=== PATIENT | male | born 1955 | race Caucasian/White ===

== ENCOUNTER 2017-04-29 11:07 | Day surgery (SDC) ==
[2014-01-18 01:56] VITALS: BMI 27.8
[2017-04-29] MEDS ORDERED: DIPRIVAN 20 ML VIAL IVP ONE (12:06)
[2017-04-29] MEDS ORDERED: VERSED ONE (12:06)
[2017-04-29 13:09] VITALS: BP 129/81; TEMP 98.4
--- NOTE | 2017-04-30 10:28 | OP ---
PROCEDURE: COLONOSCOPY, SNARE POLYPECTOMY. ENDOSCOPIST: Jie BENÍTEZ M.D. INDICATION: HISTORY OF PSC, HERE FOR SURVEILLANCE. INSTRUMENT: [facility]-190. MEDICATION: PER ANESTHESIA. PROCEDURE: The patient was positioned for colonoscopy. The digital rectal exam was negative. The colonoscope was inserted through the anus and advanced under direct vision to the cecum. The cecum was identified using the ileocecal valve and the appendiceal orifice as landmarks. The scope was slowly withdrawn through a well-prepped colon. At the hepatic flexure, a small polypoid area was removed using snare cautery. No other abnormalities were noted. Retroflex exam was otherwise normal. The patient tolerated the procedure well without immediate complication. PLAN: 1. Review pathology. 2. Repeat exam in two years. CC: DR. RAJI VIGIL CC: REN LEES M.D. [facility] OF GASTROENTEROLOGY [address] [place] [id number] MTDD
== END 2017-04-29 13:13 | disposition home or self-care (01) ==
LOC: SURG 11:07
PROVIDERS: ATTEND Internal Medicine Gastroenterology
DX: Z09 Encounter for follow-up examination after completed treatment for conditions other than malignant neoplasm (principal); Z87.19 Personal history of other diseases of the digestive system; D12.3 Benign neoplasm of transverse colon

== ENCOUNTER 2018-02-03 06:34 | Day surgery (SDC) ==
[2014-01-18 01:56] VITALS: BMI 27.8
[2018-02-03] MEDS ORDERED: LIDOCAINE 1% 20 ML MDV ID ONE (07:17)
[2018-02-03] MEDS ORDERED: LIDOCAINE HCL 2% LUER-JET ONE (08:25)
[2018-02-03] MEDS ORDERED: VERSED ONE (08:25)
[2018-02-03] MEDS ORDERED: DIPRIVAN 20 ML VIAL IVP ONE (08:25)
[2018-02-03 09:40] VITALS: BP 122/67; TEMP 98.7
--- NOTE | 2018-02-04 08:47 | OP ---
PROCEDURE: EGD (ESOPHAGOGASTRODUODENOSCOPY). ENDOSCOPIST: Jie BENÍTEZ M.D. INDICATION: PSC INSTRUMENT: [facility]-190. MEDICATION: PER ANESTHESIA. PROCEDURE: The patient was positioned for endoscopy. The oropharynx was sprayed with Cetacaine spray and the endoscope was advanced through the bite block into the esophagus and from there advanced to the duodenum. The duodenum was normal. There was no evidence of duodenum polyps. The ampulla was within duodenum diverticulum and I could not visualize it on a forward viewing scope. Mild gastritis was noted throughout the stomach. There was no evidence of inflammatory change such as ulcer or mass. The cardia was normal. The Z-line was at 40cm . 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 These are in four columns less than 5mm in size and flattened with inflation. These are a new findings compared to his previous endoscopies. The remained esophagus was normal. The patient tolerated the procedure without immediate complication. PLAN: 1. Surveillance endoscopy in one year CC: Dr. Chase Ordoñez, [facility] Division of Gastroenterology [address] [place] [id number] Send copy of the color photos to his office as well. [facility]
== END 2018-02-03 09:35 | disposition home or self-care (01) ==
LOC: SURG 06:34
PROVIDERS: ATTEND Internal Medicine Gastroenterology
DX: Z87.19 Personal history of other diseases of the digestive system (principal); K29.70 Gastritis, unspecified, without bleeding; I85.00 Esophageal varices without bleeding; K57.90 Diverticulosis of intestine, part unspecified, without perforation or abscess without bleeding

== ENCOUNTER 2018-03-04 06:55 | Outpatient (CLI) ==
[2014-01-18 01:56] VITALS: BMI 27.8
== END 2018-03-04 06:56 | disposition home or self-care (01) ==
LOC: LAB 06:55
PROVIDERS: ATTEND Internal Medicine Gastroenterology
DX: K83.0 Cholangitis (principal)
CPT/HCPCS: 36415; 80053; 85610

== ENCOUNTER 2019-01-26 06:24 | Day surgery (SDC) ==
[2014-01-18 01:56] VITALS: BMI 27.8
[2019-01-26] MEDS ORDERED: LIDOCAINE 1% 20 ML MDV ID ONE (07:15)
[2019-01-26 07:20] VITALS: TEMP 96
[2019-01-26] MEDS ORDERED: DIPRIVAN 20 ML VIAL IVP ONE (08:00)
[2019-01-26 08:42] VITALS: BP 98/57
--- NOTE | 2019-01-27 11:35 | OP ---
PROCEDURE: EGD (ESOPHAGOGASTRODUODENOSCOPY). ENDOSCOPIST: Jie BENÍTEZ M.D. INDICATION: VARICELE SURVEILLIANCE INSTRUMENT: [facility]-190. MEDICATION: PER ANESTHESIA. PROCEDURE: The patient was positioned for endoscopy. The oropharynx was sprayed with Cetacaine spray and the endoscope was advanced through the bite block into the esophagus and from there advanced to the duodenum. The duodenum was grossly normal. The pylorus was patent. The antrum was normal. Mild portal hypertensive gastropathy noted in the fundus. The lower esophagus is notable for Grade I varices. These flatten on inflation. I estimate their diameter at 4 mm . The remaining part of the exam was normal. He tolerated the procedure without immediate complication. PLAN: 1. Suggest repeat endoscopy in one year. We may ask that he change his varicele surveillance to [facility]. cc: Dr. Ordoñez cc: Dr. Milo DUMAS
--- NOTE | 2019-01-27 11:39 | OP ---
PROCEDURE: COLONOSCOPY. ENDOSCOPIST: Jie BENÍTEZ M.D. 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 INSTRUMENT: [facility]-190. MEDICATION: PER ANESTHESIA. PROCEDURE: The patient was positioned for colonoscopy. The digital rectal exam was negative. The colonoscope was inserted through the anus and advanced to the cecum. The cecum was identified using the ileocecal valve and the appendiceal orifice as landmarks. The scope was slowly withdrawn through an adequately prepped colon. The [place] Bowel Prep Score 2+2+2 = 6. A few scattered diverticuli noted in the left colon. At 40 cm a 8 mm sessile polyp is removed using snare cautery. At 30 cm a 1 cm sessile polyp is removed using snare cautery. No other obvious lesions are noted. The retroflex exam was otherwise negative. Withdrawal time 10 minutes and 47 seconds. PLAN: 1. Repeat colonoscopy in 1 to 2 years based on his pathology. cc: Dr. Ordoñez cc: Dr. Milo DUMAS
== END 2019-01-26 09:00 | disposition home or self-care (01) ==
LOC: SURG 06:24
PROVIDERS: ATTEND Internal Medicine Gastroenterology
DX: Z86.010 Personal history of colon polyps (principal); I85.00 Esophageal varices without bleeding; K76.6 Portal hypertension; K31.89 Other diseases of stomach and duodenum; K63.5 Polyp of colon; D12.5 Benign neoplasm of sigmoid colon